=== PATIENT | male | born 1995 | race African-American/Black ===

== ENCOUNTER 2023-11-30 11:50 | Observation (INO) ==
[2023-11-30] MEDS: Buffered Lidocaine 1% SYRIN 1 ml INTRADERM ONE (14:19)
[2023-11-30] MEDS: Scopolamine 1 mg/72hr PATCH TRANSDERM ONE (14:29)
[2023-11-30] MEDS ORDERED: ceFAZolin 2 GM PREMIX 2 GM/50 ML BAG ONE (14:39)
[2023-11-30] MEDS: Lactated Ringers 1000 ml BAG 1,000 ML IV SCH (14:46)
[2023-11-30] MEDS ORDERED: Succinylcholine 200 mg VIAL 20 mg/ml 10 ml VIAL (200 mg) ONE (15:47)
[2023-11-30] MEDS ORDERED: Sevoflurane BOTTLE ONE (15:47)
[2023-11-30] MEDS ORDERED: Lidocaine 2% PF 5 ML VIAL ONE (15:47)
[2023-11-30] MEDS ORDERED: Propofol 10 MG/ML 20 ML BTL ONE (15:47)
[2023-11-30] MEDS ORDERED: fentaNYL 250 mcg/5 ml 50 MCG/ML 5 ml VIAL (250 MCG) ONE (16:27)
[2023-11-30] MEDS ORDERED: Midazolam 5 mg/5 ml VIAL 1 mg/ml 5 ml VIAL (5 mg) ONE (16:50)
[2023-11-30] MEDS ORDERED: Bupivacaine 0.5% SDV PF 30ML VIAL ONE (17:12)
[2023-11-30] MEDS ORDERED: Lidocaine 1% VIAL 10 MG/ML 30 ML VIAL ONE (17:13)
[2023-11-30] MEDS ORDERED: KETAMINE HCL 10 MG/ML 20 ml VIAL (200 MG) ONE (17:33)
[2023-11-30] MEDS ORDERED: Dexamethasone IV 4 MG/ML VIAL 1 ml VIAL ONE (17:54)
[2023-11-30] MEDS ORDERED: Ondansetron 4 mg VIAL 2 MG/ML 2 ml VIAL ONE (17:54)
[2023-11-30] MEDS ORDERED: Ondansetron 4 mg VIAL 2 MG/ML 2 ml VIAL IV PRN (20:17)
[2023-11-30 20:46] LABS: Rapid COVID-19 Molecular Undetected (Undetected)
== END 2023-12-01 09:00 | disposition home or self-care (01) ==
LOC: OR 11:50 → SSU 11:50
PROVIDERS: ADMIT Surgery Surgical Critical Care; ATTEND Surgery Surgical Critical Care